=== PATIENT | female | born 1960 | race Caucasian/White ===

== ENCOUNTER 2023-05-25 09:30 | Observation (INO) ==
--- NOTE | 2023-04-13 16:22 | PAT Medication Instructions ---
Medication Instructions Date of Service April 13, 2023 Home Medications Medication Instructions Recorded potassium chloride 10 mEq 10 meq PO BID #180 tabs 11/27/22 tablet,extended release atenolol 50 mg tablet 50 mg PO DAILY #90 tabs 01/19/23 triamterene 37.5 1 tab PO DAILY #90 tabs 02/09/23 mg-hydrochlorothiazide 25 mg tablet estradiol 0.01% (0.1 mg/gram) vaginal cream 1 appful vaginal .COMPLEX potassium chloride 10 mEq tablet,extended release 10 meq PO BID atenolol 50 mg tablet 50 mg PO DAILY triamterene 37.5 mg-hydrochlorothiazide 25 mg tablet 1 tab PO DAILY calcium carbonate 600 mg-vitamin D3 10 mcg (400 unit) tablet (Calcium 600 + D(3)) 2 tab PO QAM multivitamin 1 tab PO QAM Continue as directed atenolol 50 mg tablet 50 mg PO DAILY STOP taking 24 hours before surgery estradiol 0.01% (0.1 mg/gram) vaginal cream 1 appful vaginal .COMPLEX DO NOT take the morning of surgery potassium chloride 10 mEq tablet,extended release 10 meq PO BID triamterene 37.5 mg-hydrochlorothiazide 25 mg tablet 1 tab PO DAILY calcium carbonate 600 mg-vitamin D3 10 mcg (400 unit) tablet (Calcium 600 + D(3)) 2 tab PO QAM multivitamin 1 tab PO QAM Take evening before surgery potassium chloride 10 mEq tablet,extended release 10 meq PO BID Other Notes OTHERWISE NOTHING TO EAT OR DRINK AFTER MIDNIGHT. If you have any questions please call us at [phone] or [phone] or [phone] or [phone]
--- NOTE | 2023-04-22 09:46 | Anesthesiology Consultation ---
Date of Service April 22, 2023 Assessment & Plan (1) Encounter for pre-operative examination: - Outpatient joint assessment: Patient is currently scheduled for inpatient pathway. If re-evaluated pending system levels during current pandemic/surgeon requests outpatient pathway, patient is acceptable candidate for outpatient joint program from anesthesia standpoint pending surgeon's office assessment of pt motivation/support/completion of same day joint program preop requirements. Chart Review Chart Review: Acceptable Risk for Surgery and Patient seen in Pre Admission Testing Teaching & Discussion Pre-Anesthesia Teaching/Discussion Notes: Instructed NPO after midnight before surgery, except medications with 15 cc of water. Medication instructions provided according to the PAT guidelines. History Surgery Operation Date: 05/25/23 08:15 Proposed Procedures p Right Total Knee Arthroplasty - Octaviano Stapleton, Height/Weight Height: 5 ft 3 in Weight: 74.8 kg Allergies Allergy/AdvReac Type Severity Reaction Status Date / Time cefdinir Allergy Unknown Rash Verified 04/13/23 13:30 erythromycin base Allergy Unknown Rash Verified 04/13/23 13:30 Penicillins Allergy Unknown Rash Verified 04/13/23 13:30 Sulfa (Sulfonamide Allergy Unknown Rash Verified 04/13/23 13:30 Antibiotics) Medications Home Medications Medication Instructions Recorded Confirmed Last Taken estradiol 0.01% (0.1 mg/gram) 1 appful vaginal .COMPLEX 11/06/22 04/13/23 Unknown vaginal cream potassium chloride 10 mEq 10 meq PO BID #180 tabs 11/27/22 04/13/23 Unknown tablet,extended release atenolol 50 mg tablet 50 mg PO DAILY #90 tabs 01/19/23 04/13/23 Unknown triamterene 37.5 1 tab PO DAILY #90 tabs 02/09/23 04/13/23 Unknown mg-hydrochlorothiazide 25 mg tablet calcium carbonate 600 mg-vitamin 2 tab PO QAM 04/13/23 04/13/23 Unknown D3 10 mcg (400 unit) tablet (Calcium 600 + D(3)) multivitamin 1 tab PO QAM 04/13/23 04/13/23 Unknown Past Medical History Medical History (Updated 04/22/23 @ 09:45 by Jaye Underwood PA-C) History of abnormal electrocardiogram >10 yrs ago, incidental finding w/ D&C procedure; followed w/ Dr Schneider for stress testing inpatient; no known issues found History of seizure 4 yrs old, had strep throat at the time, states they placed a trach at the time to open airway; no issues since Hypertension Patient denies h/o stroke, heart attack, heart failure, DM, blood clots or blood transfusions. Exercise / Class Metabolic Activity II 4-5 Yardwork/Stairs/Walk up hill (denies chest discomfort or shortness of breath with 1 FOS) Past Family History Family History Father , from bladder cancer Bladder cancer Prostate cancer Former smoker Mother Osteoarthritis Hypertension Denies family history of Ovarian cancer Myocardial infarction Breast cancer Colorectal cancer Past Surgical History Surgical History H/O dilation and curettage x 3 Hx of colonoscopy 07/17/20 Hx of tubal ligation S/P section x 2 Past Anesthesia History No Hx of Anesthesia Complications and No Family Hx of Anesthesia Complications History of PONV No Hx of PONV and No Hx of Motion Sickness Social History Smoking Status: Never smoker Do You Dip or Chew Tobacco: No Hx Alcohol Use: Yes Alcohol type: beer alcohol intake frequency: a few times a week Hx Substance Use: No substance use type: does not use Review of Systems Snoring, denies witnessed apneas. Patient denies chest pain, shortness of breath, dyspnea on exertion, reflux, fever, chills, cough, wheezing, or palpitations. Physical Exam Vital Signs Vitals BP 149/80 P 53 TEMP 97.9 SP02 97% on RA RESP 17 Physical Full cervical extension range of motion without pain TMD 3.5 finger breadths Mallampati Score 3, small oral opening Dentition: multiple crowns; denies chipped or loose teeth, caps, implants or bridges Lungs: normal respiratory effort. Good air movement, clear throughout to auscultation, no adventitious breath sounds Cardiac: regular rate and rhythm, no murmurs noted Carotid arteries: negative bruit bilat Lab Results Anesthesia Preop Results Results Anesthesia Widget: WBC 6.59 K/ul (4.8-10.8) 04/22/23 Hgb 13.5 g/dl (12.0-16.0) 04/22/23 Hct 41.7 % (37.0-47.0) 04/22/23 Plt 290 K/uL (130-400) 04/22/23 Na 140 mmol/L (136-145) 04/22/23 K 4.5 mmol/L (3.5-5.1) 04/22/23 Cl 107 mmol/L (98-107) 04/22/23 CO2 28 mmol/L (21-32) 04/22/23 BUN 18 mg/dl (6-23) 04/22/23 Creat 0.88 mg/dl (0.6-1.2) 04/22/23 Glucose Level 94 mg/dl (70-99(Fasting)) 04/22/23 PT 10.5 Seconds (9.0-12.0) 04/22/23 PTT 25.1 Seconds (21.0-31.0) 04/22/23 INR 1.0 (0.9-1.1) 04/22/23 Blood Type A Positive 04/22/23 Antibody Screen NEGATIVE 04/22/23 Testing Electrocardiogram Date: 04/22/23 Sinus bradycardia, rate [address] abnormality Chest X-Ray Date: 04/22/23 No active disease in the chest COVID-19 Risk Screen Screening Information COVID-19 Screen Date: 04/22/23 Exposure 21 Days Family/Household +COVID Last 21 Days: No Exposure 10 Days Any COVID Exposure Last 10 Days: No Symptoms Last 10 Days Experienced COVID Sx Last 10 Days: No + COVID 0-90 Days COVID + in Last 0-90 Days: No
--- NOTE | 2023-05-21 07:49 | History & Physical Report ---
Date of Service May 21, 2023 Assessment & Plan (1) Osteoarthritis, knee: We will proceed with a right total knee arthroplasty. Postoperatively she will be started on aspirin for DVT prophylaxis and kept overnight in the hospital for postop medical management. She plans to go to [facility] in [place] upon discharge. History of Present Illness Chief Complaint: Osteoarthritis of the right knee. Primary Care Provider: Rhoda Barrientos DO Radha is a pleasant 63-year-old female who has been dealing with chronic worsening right knee pain. Previous x-rays have shown advanced osteoarthritis of the right knee. We have been treating her conservatively. She has had multiple injections. She has done anti-inflammatories and activity modific ation. She has been doing some home exercises to help straighten the leg. Unfortunately, she continues to have right knee pain. It is starting to limit her daily activities. It is affecting her quality of life. After failing conservative treatment, she has elected to proceed with a right total knee arthroplasty. Allergies Allergy/AdvReac Type Severity Reaction Status Date / Time cefdinir Allergy Unknown Rash Verified 04/13/23 13:30 erythromycin base Allergy Unknown Rash Verified 04/13/23 13:30 Penicillins Allergy Unknown Rash Verified 04/13/23 13:30 Sulfa (Sulfonamide Allergy Unknown Rash Verified 04/13/23 13:30 Antibiotics) Home Medications Medication Instructions Recorded Confirmed Type estradiol 0.01% (0.1 mg/gram) 1 appful vaginal .COMPLEX 11/06/22 04/13/23 History vaginal cream calcium carbonate 600 mg-vitamin 2 tab PO QAM 04/13/23 04/13/23 History D3 10 mcg (400 unit) tablet (Calcium 600 + D(3)) multivitamin 1 tab PO QAM 04/13/23 04/13/23 History atenolol 50 mg tablet 50 mg PO DAILY #90 tabs 04/29/23 Rx potassium chloride 10 mEq 10 meq PO BID #180 tabs 05/11/23 Rx tablet,extended release triamterene 37.5 1 tab PO DAILY #90 tabs 05/11/23 Rx mg-hydrochlorothiazide 25 mg tablet Past Med/Surg History Medical History History of abnormal electrocardiogram >10 yrs ago, incidental finding w/ D&C procedure; followed w/ Dr Schneider for stress testing inpatient; no known issues found History of seizure 4 yrs old, had strep throat at the time, states they placed a trach at the time to open airway; no issues since Hypertension Surgical History H/O dilation and curettage x 3 Hx of colonoscopy 07/17/20 Hx of tubal ligation S/P section x 2 Family History Father , from bladder cancer Bladder cancer Prostate cancer Former smoker Mother Osteoarthritis Hypertension Denies family history of Ovarian cancer Myocardial infarction Breast cancer Colorectal cancer Social History Smoking Status: Never smoker packs per day: 0.25; Second Hand Exposure: No; Do You Dip or Chew Tobacco: No; Hx Alcohol Use: Yes Alcohol type: beer Alcohol Intake Frequency: 2-3 x/Week Alcohol Intake Frequency Comment: weekends Hx Substance Use: No Preferred Language: [place] Communication Ability: Effective Visual Impairment: No Limitations Hearing Ability: Normal Limo Driver Required: No Beliefs That Will Affect Care: None marital status: Current Living Situation: Spouse current occupational status: employed current occupation: Office work How many Children do You have: 2 Feels Safe at Home: Yes Childhood Exposure to Second-Hand Smoke: No Diet: regular Diet Comment: regular caffeine: Yes (pepsi zero/ tea ) during the past year weight has: remained stable Dental Care, Regularly: Yes Physical Activity Frequency: Daily Physical Activity Frequency Comment: walks- housework Seatbelt Use: always Sunscreen Use: Yes Assistive Devices: None Review of Systems All systems reviewed & are unremarkable except as noted in HPI & below. Physical Exam On physical examination of the right knee, she has a slight varus deformity. She has pain over the distal medial femoral condyle and over the medial joint line.. Constitutional WD/WN, vitals as above Eyes PERRL, conjunctivae normal, anicteric sclerae ENMT external ear and nose normal, oropharynx normal Neck trachea midline, no thyromegaly Respiratory normal respiratory effort, lungs clear to auscultation Cardiovascular RRR, no murmur, no edema Gastrointestinal (Abdomen) normal bowel sounds, soft, nontender, no hepatosplenomegaly Skin no rashes, warm and dry Psychiatric A+Ox3, euthymic affect Results & Data Results & Data Laboratory Results . Diagnostic Findings X-rays of the right knee show advanced osteoarthritis with joint space narrowing, osteophyte formation, and [id number] tubulation.. PG Care Time/CCT Total # of Minutes Spent Total Time Spent with Patient: Total time spent is greater than 50% in coordination of care (as documented) at patient's floor/unit and/or counseling patient: Coding Level of Care Code None Diagnoses Osteoarthritis, knee M17.10
[~2023-05-25 09:30] MED LIST: ACETAMINOPHEN 500 MG TAB PO SCH; BUPIVACAINE 0.5 % 5 MG/1 ML PF 10ML VIAL ONE; FAMOTIDINE 20 MG TAB PO SCH; GABAPENTIN 600 MG DOSE PO SCH; LR 500ML BOLUS, THEN 15ML/HR IV SCH; LR 60ML/HR IV SCH; ORTHO JOINT MIX INFIL SCH; ROPIVACAINE 0.5% 5 MG/ML 30 ML VIAL ONE; TRANEXAMIC ACID 1,000 MG **IV Intra-op IV SCH; TRANEXAMIC ACID 1,000 MG **IV Pre-op IV SCH; ceFAZolin 2000MG 2,000 MG/15 ML SYR IV SCH; dexAMETHasone 4 MG TAB PO SCH
[2023-05-25] MEDS ORDERED: PROPOFOL IV EMULSION 10 MG/ML 20 ML VIAL IV ONE (10:13)
[2023-05-25] MEDS ORDERED: MIDAZOLAM HCL 1 MG/ML 2ML VIAL ONE ×2 (10:13→10:40)
--- NOTE | 2023-05-25 10:37 | History & Physical Bridge Note ---
Date of Service May 25, 2023 History & Physical Bridge Note I have examined the patient, reviewed the History & Physical and in the interval since the performance of the History & Physical I have noted the following changes of clinical significance: no changes noted
[2023-05-25] MEDS ORDERED: DEXAMETHASONE SOD INJ 4 MG/ML VIAL ONE (10:40)
[2023-05-25] MEDS ORDERED: ONDANSETRON INJ 2 MG/ML 2 ML VIAL ONE (10:40)
[2023-05-25] MEDS ORDERED: ceFAZolin 2000MG 2,000 MG/15 ML SYR IV ONE (10:41)
[2023-05-25] MEDS ORDERED: ceFAZolin 2,000 MG/15 ML IV PUSH IV ONE (10:44)
[2023-05-25] MEDS ORDERED: ATROPINE SULFATE 0.1 MG/ML 10ML SYR IV PRN (11:18)
[2023-05-25] MEDS ORDERED: ONDANSETRON INJ 2 MG/ML 2 ML VIAL IV PRN ×2 (11:18→14:49)
[2023-05-25] MEDS ORDERED: HYDROmorphone INJ 2 MG/ML SYR/VIAL IV PRN (11:18)
[2023-05-25] MEDS ORDERED: PROMETHAZINE HCL 12.5 MG in SODIUM CHLORIDE 0.9% 50 ML IV PRN (11:18)
[2023-05-25] MEDS ORDERED: ePHEDrine sulfate 50 MG/ML AMP IV PRN (11:18)
[2023-05-25] MEDS ORDERED: fentaNYL citrate PF 100 MCG/2 ML VIAL IV PRN (11:18)
[2023-05-25] MEDS ORDERED: ORTHO JOINT ANESTHETIC ONE (11:19)
[2023-05-25] MEDS ORDERED: KETAMINE 50 MG/5 ML SYRINGE ONE (11:58)
[2023-05-25] MEDS ORDERED: ePHEDrine sulfate 50 MG/ML AMP ONE (12:39)
--- NOTE | 2023-05-25 12:59 | Operative Report ---
PG Post Operative Report Pre & Post Diagnosis Operation Date: 05/25/23 11:10 Pre-Op Diagnosis: Right knee degenerative joint disease Post-Op Diagnosis: Right knee degenerative joint disease I identified the patient and participated in the time-out.: Yes Procedure Operation Date: 05/25/23 11:10 Actual Procedures p Right Total Knee Arthroplasty(Right) - Octaviano Stapleton DO Surgeon Octaviano Stapleton DO Check Examiner Octaviano Flores PA-C Estimated Blood Loss 30 Findings Consistent with Post-Op Diagnosis Specimens Right femoral tibial bone Description of Procedure Implants used: I used a [employer] Person[employer] total knee arthroplasty system with a size 7 standard PS femur, D tibia, 31 oval patella, and a size 12 CPS polyethylene bearing. All components were cemented in place with Biomet cement. Radha arrived [facility] for the above procedure. She was seen in the preoperative holding area and the operative extremity was identified and signed. She was given a preoperative antibiotic, TXA, a spinal anesthetic and an adductor nerve block. She was taken back to the operating room and laid on the table in supine position. She was given basic sedation. The operative knee was then prepped and draped in sterile fashion. A timeout was done, and the patient and the operative extremity was properly identified. A midline incision was made directly over the patella. Dissection was taken down to the extensor mechanism. A midvastus arthrotomy was used. The medial retinaculum was released and the fat pad was mostly excised. The knee was flexed and the ACL, PCL, and meniscus were removed. A drill was sent down the center of the femoral canal followed by an intramedullary david. Off that david a distal femoral cutting block was placed. 9 mm was resected off the distal femur at 5 of valgus. A posterior referencing AP sizing guide was then placed on the distal femur. The femur measured to be a size 7. 2 drill holes were placed in 3 of external rotation. A 4-in-1 cutting block was then impacted into place. Anterior, posterior, and chamfer cuts were then made. The proximal tibia was then exposed. An external tibial alignment guide was placed. A tibial cut guide was then anchored in place and the proximal tibia was then resected. The posterior aspect of the knee was then opened up and any additional meniscus fragments and osteophytes were removed. The tibia measured to be a size D. The tibial plate was then placed in the appropriate rotation and the tibia was drilled and punched. Trial components were then placed. I used a size 12 CPS polyethylene insert. The knee was brought through a full range of motion and felt to be stable. The peg holes for the femoral component were then drilled. The patella was then everted and 9 mm was resected off the posterior aspect of the patella. The patella measured to be a size 31 oval. 3 peg holes were then drilled. A trial patella was placed. The knee was once again brought through a full range of motion and felt to be stable. Trial components were then removed. The surrounding soft tissues were injected with 100 cc of an orthopedic pain control cocktail. All components were then cemented into place with Biomet cement. The final polyethylene insert was then snapped into place. Once cement was dry the tourniquet was deflated. Hemostasis was obtained. Surgiphor Betadine lavage was used throughout the case. The joint was then irrigated with normal saline solution. The midvastus arthrotomy was then closed with #1 Vicryl suture. The skin was closed with 2-0 Vicryl, 3-0V lock suture, and juan. A soft compressive dressing was placed. She was then transferred to a hospital bed and taken to the postanesthesia care unit in stable condition. She tolerated the procedure well. Octaviano Flores PA-C, was present for the entire procedure. He was critical for patient positioning, prepping, draping, retraction exposure, wound closure and application of sterile dressing. I attest to the content of the Intraoperative Record and any orders documented therein. Any exceptions are noted below.
--- NOTE | 2023-05-25 13:41 | XRay Report ---
XR knee RT 1 or 2V routine HISTORY: 63 years-old Female Surgical Post Op right knee arthroplasty COMPARISON: 04/22/2023 TECHNIQUE: 2 views of the right knee FINDINGS: Total joint arthroplasty with patellar resurfacing. Anterior midline skin juan are present along w ith expected postoperative soft tissue swelling with deep tissue air. No acute fracture, dislocation or unexpected opaque foreign body. IMPRESSION: Total joint arthroplasty with expected postoperative changes. ACT 112: Negative or not required by law. The above report was generated using voice recognition software. It may contain grammatical, syntax o r spelling errors. Electronically signed by: Garfield Gregorio M.D. 05/25/2023 1:40 PM
--- NOTE | 2023-05-25 14:22 | Anesthesiology Progress Note ---
Date of Service May 25, 2023 Anesthesia Post Procedure Vital Signs Vital Signs: Temp Pulse Pulse Resp BP Pulse Ox O2 Del Method 05/25/23 14:17 36.3 C L 62 16 123/64 96 Room Air 05/25/23 14:05 57 L 13 119/74 94 Room Air 05/25/23 13:55 59 L 16 125/66 95 Room Air 05/25/23 13:45 60 13 123/65 95 Room Air 05/25/23 13:35 71 14 127/65 96 Room Air 05/25/23 13:25 70 12 128/63 94 Room Air 05/25/23 13:16 36.1 C L 76 12 115/59 L 96 Room Air 05/25/23 10:02 36.8 C 64 18 187/83 H 97 Room Air Transfer of Care Handoff Completed per policy Notes Mental Status: alert / awake / arousable and participated in evaluation Nausea / Vomiting: adequately controlled Pain: adequately controlled Airway Patency, RR, SpO2: stable & adequate BP & HR: stable & adequate Hydration State: stable & adequate Neuraxial Anesthesia: was administered and sensory block is resolving Anesthetic Complications: no major complications apparent and Pt Satisfied with anesthetic care
[2023-05-25] MEDS ORDERED: oxyCODONE HCL IR 5 MG TAB (IMMEDIATE RELEASE) PO PRN (14:49)
[2023-05-25] MEDS ORDERED: bisacodyL 10 MG SUPP PR PRN (14:49)
[2023-05-25] MEDS ORDERED: METOCLOPRAMIDE HCL INJ 5 MG/ML 2 ML VIAL IV PRN (14:49)
[2023-05-25] MEDS ORDERED: MAGNESIUM HYDROXIDE SUSP 30 ML UDC PO PRN (14:49)
[2023-05-25] MEDS ORDERED: HYDROmorphone INJ 0.5 MG/0.5 ML SYR IV PRN (14:49)
[2023-05-25] MEDS ORDERED: NALOXONE HCL 0.4 MG/1 ML VIAL/CARP IV PRN (14:49)
[2023-05-25] MEDS: ACETAMINOPHEN 500 MG TAB PO SCH ×2 (15:28→23:14)
[2023-05-25] MEDS: KETOROLAC 30 MG/ML VIAL IV SCH ×2 (15:28→19:58)
[2023-05-25] MEDS: SODIUM CHLORIDE 0.9% 1000ML 1,000 ML IV SCH (15:29)
[2023-05-25] MEDS: ceFAZolin 2000MG 2,000 MG/15 ML SYR IV SCH (19:57)
[2023-05-25] MEDS: POTASSIUM CHLORIDE 10 MEQ TABCR PO SCH (19:58)
[2023-05-25] MEDS: ASPIRIN 81 MG ECTAB PO SCH (19:58)
[2023-05-25] MEDS: DOCUSATE SODIUM 100 MG CAP PO SCH (19:59)
[2023-05-25] MEDS ORDERED: SENNA 8.6 MG TAB PO SCH (21:00)
[2023-05-26] MEDS: SODIUM CHLORIDE 0.9% 1000ML 1,000 ML IV SCH (02:07)
[2023-05-26] MEDS: KETOROLAC 30 MG/ML VIAL IV SCH ×2 (02:39→07:33)
[2023-05-26] MEDS: ceFAZolin 2000MG 2,000 MG/15 ML SYR IV SCH (02:40)
[2023-05-26] MEDS: ACETAMINOPHEN 500 MG TAB PO SCH (05:51)
--- NOTE | 2023-05-26 07:04 | Orthopedic Progress Note ---
Date of Service May 26, 2023 Assessment & Plan (1) Status post right knee replacement: Overall she is doing very well. She is not having much pain in the right knee. She will be seen by physical therapy today for ambulation and range of motion exercises. The nursing staff can change her dressing after physical therapy. She is on aspirin for DVT prophylaxis. She can be discharged home later today. She will follow-up with orthopedics in 2 weeks. Bryon Garcia was seen and examined at bedside this morning. Overall she is doing fairly well. She is not having much pain in the right knee. She has been up and ambulating to the bathroom. She has no complaints.. Review of Systems All systems reviewed & are unremarkable except as noted in HPI & below. Physical Exam On physical examination of the right knee, the dressing is clean and dry. Her leg is out full extension. She has active dorsiflexion plantarflexion of her right ankle.. Results & Data Results & Data Laboratory Results . Diagnostic Findings Postoperative x-rays of the right knee show the prosthesis to be in anatomic alignment without any evidence of fracture, his cage, or loosening.. PG Care Time/CCT Total # of Minutes Spent Total Time Spent with Patient: Total time spent is greater than 50% in coordination of care (as documented) at patient's floor/unit and/or counseling patient: Coding Level of Care Code 28087 Post Operative Follow-Up Diagnoses Status post right knee replacement Z96.651
--- NOTE | 2023-05-26 07:05 | Discharge Summary ---
Date of Service May 26, 2023 Admission HPI (Per Admitting) Radha is a pleasant 63-year-old female who has been dealing with chronic worsening right knee pain. Previous x-rays have shown advanced osteoarthritis of the right knee. We have been treating her conservatively. She has had multiple injections. She has done anti-inflammatories and activity modification. She has been doing some home exercises to help straighten the leg. Unfortunately, she continues to have right knee pain. It is starting to l imit her daily activities. It is affecting her quality of life. After failing conservative treatment, she has elected to proceed with a right total knee arthroplasty. Admission Exam (Per Admitting) On physical examination of the right knee, she has a slight varus deformity. She has pain over the distal medial femoral condyle and over the medial joint line.. Principal Diagnosis Same as "Discharge Diagnosis" noted below under Discharge Instructions. Discharge Exam On physical examination of the right knee, the dressing is clean and dry. Her leg is out full extension. She has active dorsiflexion plantarflexion of her right ankle.. Discharge Data Procedures Performed Operation Date: 05/25/23 11:10 Actual Procedures p Right Total Knee Arthroplasty(Right) - Octaviano Stapleton DO Ordered Studies 05/25/23 05:00 US - OR guided needle placemen Routine Hospital Course (1) Status post right knee replacement: On May 25, 2023 Radha arrived at [facility] and underwent a right knee replacement without complication. She had a spinal anesthetic. Postoperatively she was started on aspirin for DVT prophylaxis and transferred to the general orthopedic floors. Her hospital course was uneventful. On postop day #1, her vital signs were stable and her pain was well controlled. She was able to participate well with physical therapy doing ambulation and range of motion exercises. She was then discharged home. She will follow-up with orthopedics in 2 weeks. PG Care Time/CCT Total # of Minutes Spent Total Time Spent with Patient: Total time spent is greater than 50% in coordination of care (as documented) at patient's floor/unit and/or counseling patient: Discharge Plan Discharge Items Patient Disposition: Home - Home Health Services Reason For Visit: DJD Knee Right Discharge Diagnosis: Right knee replacement Activity: Per Instructions section Non-emergency contact: Surgeon Call non-emergency contact if: your wound has increased redness and your wound has increased drainage Follow-up/Referrals: Rhoda Barrientos, [Primary Care Provider] - Diet: Regular Addtl Attending Provider Instructions: Activity and Therapy Recommendations: * If you are using [facility] then therapy will be provided at your home until they feel you have accomplished all of your goals. * If you are using [facility] then Physical Therapy will be provided until they feel you are ready to start Outpatient Physical Therapy. * If you are not using home therapy then Outpatient Physical Therapy should start about 3-5 days from your day of surgery. Therapy will last about 6-10 weeks * It is important not to put a pillow under your knee when you are relaxing or sleeping. It is just as important to make sure you are getting your knee perfectly straight as it is to regain your knee bend. * You were shown a series of exercises in the hospital. Do these exercises three times each day including the exercises you were shown in physical therapy. * Get up and walk several times each day. For the first four weeks, try not to stand or walk for more than one hour at a time. If you do stand or walk for more than one hour, you will not hurt anything, but your leg will likely swell. * As you feel comfortable, you may change from the walker or crutches to a cane and then to independent walking. Medications: * Narcotic You will likely be sent home from the hospital with a prescription for the narcotic pain medication that worked best throughout your stay. * Aspirin Most patients will be required to take Aspirin 81mg twice a day for 6 weeks after surgery. This is obtained [id number] and a prescription is not necessary. * Other medications may be prescribed for specific circumstances. If you have any questions, please call the office at . * Resume previous home medications unless otherwise instructed TEDs/Elastic Stockings: The white elastic stockings help limit swelling and prevent blood clots from forming in your legs.~ The more you wear them, the more they work. Wear them for six weeks. Dressing Care: The dressing can be changed after physical therapy on postop day #1. Daily dry dressing changes for a few days, especially if the incision is still draining some. If the incision is not draining then you may leave the juan open to air. If there is a little bit of drainage or if the juan are getting stuck on your clothing then cover the incision with a dry dressing. The juan will be removed at your 2 week follow-up appointment. Showering: You may shower 5 days from the day of surgery as long as the incision is no longer draining. You may shower with the juan exposed. Let soapy water run over the juan and pat them dry. Do not scrub or soak the incision. Things To Watch For: * Drainage from the incision site that occurs more than one week after your surgery. * Increased redness at the incision site. * Fever above 102 degrees Fahrenheit. * Unusual chest pain or shortness of breath. * Call [facility] at with any of the above problems Follow-Up Visit: Follow-up with Dr. Stapleton's PA (Octaviano Flores) 2-3 weeks after your day of surgery. He will remove your juan and answer any questions. If you have any additional questions or concerns, Dr Stapleton is usually in the office at the same time and will be available An appointment was probably scheduled when you signed-up for surgery in the office. If you have any questions call Office Instructions: More detailed instructions as well as Frequently Asked Questions were provided in a folder by our office when you signed-up for surgery. Please review these instructions when you get home. If you have any further questions or concerns, please feel free to call the office at [phone] Pending Studies at Discharge: No Stand-Alone Forms: [facility] Medications and DC Order Prescriptions: New aspirin 81 mg Tablet,Delayed Release (Dr/Ec) 81 mg PO BID 42 Days Qty: 84 0RF oxycodone 5 mg Tablet 5 mg PO Q4H PRN (Reason: pain) Qty: 30 0RF Continued atenolol 50 mg tablet 50 mg PO DAILY Qty: 90 1RF triamterene-hydrochlorothiazid 37.5-25 mg tablet 1 tab PO DAILY Qty: 90 1RF potassium chloride 10 mEq tablet extended release 10 meq PO BID Qty: 180 1RF estradiol 0.01 % (0.1 mg/gram) cream 1 appful vaginal .COMPLEX Rx Instructions: 1 appful vaginally 2 times per week; for 14 days multivitamin Tablet 1 tab PO QAM calcium carbonate-vitamin D3 [Calcium 600 + D(3)] 600 mg-10 mcg (400 unit) Tablet 2 tab PO QAM Admission Data Admit Date/Time: 05/25/23 13:19 Attending Provider: Octaviano Stapleton Admit Provider: Octaviano Stapleton Primary Care Provider: Rhoda Barrientos
[2023-05-26] MEDS: ASPIRIN 81 MG ECTAB PO SCH (07:32)
[2023-05-26] MEDS: POTASSIUM CHLORIDE 10 MEQ TABCR PO SCH (07:33)
[2023-05-26] MEDS: DOCUSATE SODIUM 100 MG CAP PO SCH (07:33)
[2023-05-26] MEDS ORDERED: dexAMETHasone 4 MG TAB PO SCH (08:00)
[2023-05-26] MEDS ORDERED: MULTIVITAMIN TAB PO SCH (09:00)
[2023-05-26] MEDS ORDERED: ATENOLOL 50 MG TABLET PO SCH (09:00)
[2023-05-26] MEDS ORDERED: TRIAMTERENE/HCTZ 37.5/25MG TAB PO SCH (09:00)
== END 2023-05-26 11:03 | disposition home health service (06) ==
LOC: ASU 09:30 → 3E 09:30